=== PATIENT | female | born 1990 | race Caucasian/White ===

== ENCOUNTER 2019-10-13 17:50 | Inpatient (IN) ==
[2019-10-13] MEDS ORDERED: ONDANSETRON 4 MG/2 ML VIAL IV PRN (18:21)
[2019-10-13] MEDS ORDERED: BUTORPHANOL 1 MG/ML VIAL IV PRN (18:21)
[2019-10-13] MEDS ORDERED: BUTORPHANOL 2 MG/ML VIAL ONE (18:23)
[2019-10-13] MEDS ORDERED: ONDANSETRON 4 MG/2 ML VIAL ONE (18:23)
[2019-10-13] MEDS ORDERED: BUTORPHANOL 2 MG/ML VIAL IV SCH (18:30)
[2019-10-13] MEDS: LACTATED RINGERS 1,000 ML IV SCH ×2 (18:30→23:31)
[2019-10-13] MEDS: BUTORPHANOL 2 MG/ML VIAL IV SCH (21:21)
[2019-10-14] MEDS: BUTORPHANOL 2 MG/ML VIAL IV SCH (00:37)
[2019-10-14] MEDS ORDERED: MEPERIDINE 50 MG/1 ML VIAL IV PRN (02:14)
[2019-10-14] MEDS ORDERED: ONDANSETRON 4 MG/2 ML VIAL IV PRN ×2 (02:57→17:57)
[2019-10-14] MEDS ORDERED: LACTATED RINGERS 500 ML IV PRN (02:57)
[2019-10-14] MEDS ORDERED: PROMETHAZINE 25 MG/1 ML VIAL IM PRN (03:01)
[2019-10-14] MEDS ORDERED: LACTATED RINGERS 250 ML IV PRN (03:01)
[2019-10-14] MEDS ORDERED: diphenhydrAMINE 50 MG/1 ML VIAL IV PRN (03:01)
[2019-10-14] MEDS ORDERED: NALOXONE 0.4 MG/ML VIAL IV PRN (03:01)
[2019-10-14] MEDS ORDERED: ePHEDrine 50 MG/ML AMP IV PRN (03:01)
[2019-10-14] MEDS ORDERED: CITRIC ACID/SODIUM CITRATE 30 ML UDCUP PO ONE (03:01)
[2019-10-14 03:21] LABS: Basophils # 0.1 10*3/uL (0.0-0.2); Basophils % 0.4 % (0.0-0.8); Eosinophils # 0.1 10*3/uL (0.0-0.87); Eosinophils % 0.4 % (0.00-10.9); Hematocrit 29.9 VOL% (35.7-47.0); Hemoglobin 9.6 GM/DL (12.0-16.0); Immature Granulocytes % 0.8 %; Immature Granulocytes Absolute 0.09 #; Lymphocytes # 1.7 10*3/uL (1.4-4.0); Lymphocytes % 15.1 % (21.3-54.2); Mean Corpuscular HGB Conc 32.1 GM/DL (32-36); Mean Corpuscular Volume 91.4 FL (87-102); Mean Platelet Volume 10.1 FL (9.6-12.0); Monocytes % 5.6 % (1.7-12.7); Neutrophils % 77.7 % (38.7-73.9); Platelet Count 197 T/CUMM (130-400); Red Blood Count 3.27 MC/CUMM (3.8-5.5); Red Cell Distribution Width 13.4 % (9.3-17.3); White Blood Count 11.5 T/CUMM (4-12)
[2019-10-14] MEDS ORDERED: FAMOTIDINE 20 MG/2 ML VIAL IV ONE (03:29)
[2019-10-14] MEDS ORDERED: AMPICILLIN INJ 2,000 MG in SODIUM CHLORIDE 0.9% 100 ML IV ONE (03:30)
[2019-10-14] MEDS ORDERED: LACTATED RINGERS 1,000 ML IV SCH (03:30)
[2019-10-14] MEDS ORDERED: fentaNYL 2 MCG/ROPIV 0.2% EPID 100 ML EPIDURAL SCH (03:30)
[2019-10-14] MEDS ORDERED: RANITIDINE 150 MG TABLET PO ONE (03:30)
[2019-10-14 03:40] LABS: Alanine Aminotransferase 14 U/L (13-56); Albumin 2.7 G/DL (3.4-5.0); Alkaline Phosphatase 146 U/L (45-117); Aspartate Amino Transferase 18 U/L (0-37); Bilirubin,Total < 0.39 MG/DL (0.2-1.0); Blood Urea Nitrogen 8 MG/DL (7-18); Calcium 8.4 MG/DL (8.5-10.1); Estimated Glom Filtration Rate 128 ML/MIN; Glucose 84 MG/DL (74-106); Osmolality,Calculated 269.8 MOS/KG (273-304); Total Protein 6.2 G/DL (6.4-8.3)
[2019-10-14] MEDS ORDERED: AMPICILLIN 2,000 MG VIAL ONE (03:44)
[2019-10-14] MEDS ORDERED: SODIUM CHLORIDE 0.9% 100 ML IV ONE (03:44)
[2019-10-14] MEDS: LACTATED RINGERS 1,000 ML IV SCH ×3 (05:42→22:21)
[2019-10-14 06:38] LABS: Apearance,Urine CLEAR (Clear); Bacteria,Urine Occasional /HPF (Few); Bilirubin,Urine Negative (Negative); Blood, Urine Negative (Negative); Glucose,Urine (UA) Negative (Negative); Ketones,Urine 20 mg/dL (Negative); Mucus,Urine Occasional /LPF (Occasional); Nitrite,Urine Negative (Negative); Protein,Urine Negative; RBC,Urine <1 /HPF (0-4); Urine Color Yellow (Yellow); Urine Specific Gravity 1.015 (1.001-1.035); Urine Urobilinogen < 2.0 EU/DL (0.2-1.0); WBC,Urine <1 /HPF (0-6)
[2019-10-14] MEDS ORDERED: OXYTOCIN/LR 20 UNIT/1,000 ML BAG IV SCH (07:00)
[2019-10-14] MEDS: AMPICILLIN INJ 1,000 MG in SODIUM CHLORIDE 0.9% 100 ML IV SCH ×2 (07:19→12:33)
[2019-10-14] MEDS ORDERED: ROPIVACAINE 0.5% 30 ML VIAL ONE ×2 (11:05→14:01)
[2019-10-14] MEDS ORDERED: ceFAZolin 2,000 MG in PREMIX 1 EACH IV ONE (16:22)
[2019-10-14] MEDS ORDERED: LIDOCAINE MPF 2% /EPI 20 ML VIAL ONE ×2 (16:45→18:11)
[2019-10-14 17:39] LABS: Cord Arterial Blood HCO3 18.6 MMOL/L
[2019-10-14] MEDS ORDERED: RHO(D) IMMUNE GLOBULIN 300 MCG SYRINGE IM ONE (17:57)
[2019-10-14] MEDS ORDERED: OXYTOCIN/LR 20 UNIT/1,000 ML BAG IV ONE (17:57)
[2019-10-14] MEDS ORDERED: WITCH HAZEL PADS 100/JAR TOP PRN (17:57)
[2019-10-14] MEDS ORDERED: BISACODYL 10 MG SUPP RECTAL PRN (17:57)
[2019-10-14] MEDS ORDERED: HYDROCORTISONE 2.5% RECTAL CREAM 30 GM TUBE TOP PRN (17:57)
[2019-10-14] MEDS ORDERED: oxyCODONE/ACETAMINOPHEN 5-325 MG TABLET PO PRN (17:57)
[2019-10-14] MEDS ORDERED: BENZOCAINE 20%/MENTHOL 0.5% SPRAY 56 GM CAN TOP PRN (17:57)
[2019-10-14] MEDS ORDERED: MEASLES/MUMPS/RUBELLA VACCINE 0.5 ML VIAL SUBCUT ONE (17:57)
[2019-10-14] MEDS ORDERED: LANOLIN 50% CREAM 0.3 OZ TUBE TOP PRN (17:57)
[2019-10-14] MEDS ORDERED: ACETAMINOPHEN 325 MG TABLET PO PRN (17:57)
[2019-10-14] MEDS ORDERED: DIPH/TET/ACEL PERT BOOSTER VACCINE 0.5 ML VIAL IM ONE (17:57)
[2019-10-14] MEDS ORDERED: MORPHINE 10 MG/10 ML VIAL ONE (18:09)
[2019-10-14] MEDS ORDERED: PHENYLEPHRINE 1 MG/10 ML SYRINGE IV ONE (18:10)
[2019-10-14] MEDS ORDERED: MIDAZOLAM 2 MG/2 ML VIAL ONE (18:11)
[2019-10-14] MEDS ORDERED: fentaNYL 100 MCG/2 ML VIAL ONE (18:11)
[2019-10-14] MEDS ORDERED: propofoL 200 MG/20 ML VIAL IV ONE (18:12)
[2019-10-14] MEDS ORDERED: SODIUM BICARBONATE 10 MEQ/10 ML SYRINGE IV ONE (18:27)
[2019-10-14] MEDS: DOCUSATE SODIUM 100 MG CAPSULE PO SCH (21:40)
[2019-10-15] MEDS: ceFAZolin 1,000 MG in SYRINGE 1 EACH IV SCH ×2 (00:20→07:59)
[2019-10-15] MEDS: hydrOXYzine HCL 25 MG/1 ML VIAL IM PRN ×2 (00:45→09:38)
[2019-10-15] MEDS: IBUPROFEN 800 MG TABLET PO PRN ×4 (00:53→21:20)
[2019-10-15 05:28] LABS: Basophils % 0.3 % (0.0-0.8); Eosinophils % 0.3 % (0.00-10.9); Hematocrit 22.2 VOL% (35.7-47.0); Hemoglobin 7.1 GM/DL (12.0-16.0); Immature Granulocytes % 0.5 %; Immature Granulocytes Absolute 0.06 #; Lymphocytes # 1.9 10*3/uL (1.4-4.0); Mean Corpuscular Volume 91.7 FL (87-102); Mean Platelet Volume 10.2 FL (9.6-12.0); Monocytes % 5.1 % (1.7-12.7); Neutrophils % 76.8 % (38.7-73.9); Platelet Count 156 T/CUMM (130-400); Red Blood Count 2.42 MC/CUMM (3.8-5.5); Red Cell Distribution Width 13.8 % (9.3-17.3)
[2019-10-15] MEDS: SIMETHICONE CHEW 80 MG TABLET PO PRN ×2 (07:59→21:02)
[2019-10-15] MEDS: DOCUSATE SODIUM 100 MG CAPSULE PO SCH ×2 (07:59→21:02)
[2019-10-15] MEDS: MAGNESIUM HYDROXIDE SUSP 30 ML UDCUP PO PRN ×2 (08:00→21:02)
[2019-10-15] MEDS: oxyCODONE/ACETAMINOPHEN 5-325 MG TABLET PO PRN ×3 (11:17→21:20)
[2019-10-15] MEDS: FERROUS SULFATE 325 MG TABLET PO SCH (21:02)
[2019-10-16] MEDS: IBUPROFEN 800 MG TABLET PO PRN (06:22)
[2019-10-16] MEDS: oxyCODONE/ACETAMINOPHEN 5-325 MG TABLET PO PRN (06:22)
[2019-10-16 07:29] VITALS: BP 103/59
[2019-10-16] MEDS: FERROUS SULFATE 325 MG TABLET PO SCH (09:05)
[2019-10-16] MEDS: DOCUSATE SODIUM 100 MG CAPSULE PO SCH (09:05)
[2019-10-16] MEDS: SIMETHICONE CHEW 80 MG TABLET PO PRN (09:05)
[2019-10-16] MEDS: MAGNESIUM HYDROXIDE SUSP 30 ML UDCUP PO PRN (09:05)
== END 2019-10-16 13:05 | disposition home or self-care (01) | DRG 788 ==
LOC: N.LDOUT 17:50 → N.LD 17:51 → N.OB 10-14 20:55
PROVIDERS: ADMIT Specialist; ATTEND Specialist
PROC: LDCSECT (ICD-10-PCS; 2019-10-14 17:00)

== ENCOUNTER 2021-04-13 05:42 | Inpatient (IN) ==
[2021-04-13] MEDS: LACTATED RINGERS 1,000 ML IV SCH ×2 (06:10→18:30)
[2021-04-13 06:42] LABS: Basophils % 0.4 % (0.0-0.8); Eosinophils % 0.5 % (0.00-10.9); Hematocrit 33.8 VOL% (35.7-47.0); Hemoglobin 11.3 GM/DL (12.0-16.0); Immature Granulocytes % 0.8 %; Immature Granulocytes Absolute 0.06 #; Lymphocytes # 2.4 10*3/uL (1.4-4.0); Mean Corpuscular HGB Conc 33.4 GM/DL (32-36); Mean Corpuscular Volume 93.9 FL (87-102); Mean Platelet Volume 9.6 FL (9.6-12.0); Monocytes % 6.6 % (1.7-12.7); Neutrophils % 59.7 % (38.7-73.9); Platelet Count 204 T/CUMM (130-400); Red Cell Distribution Width 13.8 % (9.3-17.3); White Blood Count 7.4 T/CUMM (4-12)
[2021-04-13 07:01] LABS: Alanine Aminotransferase 17 U/L (13-56); Albumin 2.8 G/DL (3.4-5.0); Alkaline Phosphatase 187 U/L (45-117); Aspartate Amino Transferase 17 U/L (0-37); Bilirubin,Total < 0.39 MG/DL (0.20-1.00); Blood Urea Nitrogen 5 MG/DL (7-18); Calcium 8.8 MG/DL (8.5-10.1); Carbon Dioxide 21 MMOL/L (21-32); Estimated Glom Filtration Rate 143 ML/MIN; Glucose 81 MG/DL (74-106); Hypochromasia 1+; Lymphocytes 36 % (20-55); Microcytosis 1+; Osmolality,Calculated 268.8 MOS/KG (273-304); Platelet Estimate Adequate; Potassium 3.7 MMOL/L (3.5-5.1); Segmented Neutrophils 62 % (50-85); Sodium 137 MMOL/L (136-145); Total Cells Counted 100; Total Protein 6.8 G/DL (6.4-8.2)
[2021-04-13] MEDS ORDERED: ceFAZolin 2,000 MG/50 ML DUPLEX IV ONE (08:00)
[2021-04-13] MEDS ORDERED: OXYTOCIN/LR 20 UNIT/1,000 ML BAG IV ONE ×2 (08:00→10:39)
[2021-04-13] MEDS ORDERED: CITRIC ACID/SODIUM CITRATE 30 ML UDCUP PO ONE (08:00)
[2021-04-13] MEDS ORDERED: FAMOTIDINE 20 MG/2 ML VIAL IV ONE (08:00)
[2021-04-13] MEDS ORDERED: miSOPROStoL 200 MCG TABLET ONE (08:01)
[2021-04-13] MEDS ORDERED: CARBOPROST TROMETHAMINE 250 MCG/ML AMP IM ONE (08:02)
[2021-04-13] MEDS ORDERED: TRANEXAMIC ACID 1,000 MG/10 ML VIAL ONE (08:02)
[2021-04-13] MEDS ORDERED: METHYLERGONOVINE 0.2 MG/1 ML AMP ONE (08:02)
[2021-04-13] MEDS ORDERED: SODIUM CHLORIDE 0.9% 0 ML IV ONE (08:03)
[2021-04-13] MEDS ORDERED: METOCLOPRAMIDE 10 MG/2 ML VIAL ONE (08:24)
[2021-04-13] MEDS ORDERED: ONDANSETRON 4 MG/2 ML VIAL ONE (08:24)
[2021-04-13 08:54] LABS: Bacteria,Urine Occasional /HPF (Few); Bilirubin,Urine Negative (Negative); Blood, Urine Negative (Negative); Glucose,Urine (UA) Negative (Negative); Ketones,Urine Negative (Negative); Mucus,Urine Occasional /LPF (Occasional); Nitrite,Urine Negative (Negative); Protein,Urine Negative; RBC,Urine 1 /HPF (0-4); Squamous Epithelial Cell,Urine Occasional /HPF (0-10); Urine Appearance CLEAR (Clear); Urine Color Yellow (Yellow); Urine Specific Gravity 1.014 (1.001-1.035); Urine Urobilinogen < 2.0 EU/DL (0.2-1.0)
[2021-04-13] MEDS ORDERED: BUPIVACAINE SPINAL 0.75% 2 ML AMP SPINAL ONE (09:21)
[2021-04-13] MEDS ORDERED: propofoL 200 MG/20 ML VIAL IV ONE (09:47)
[2021-04-13 10:08] LABS: Cord Arterial Blood HCO3 27.5 MMOL/L
[2021-04-13 10:10] LABS: Cord Venous Blood HCO3 23.3 MMOL/L; Cord Venous Blood PO2 36.9
[2021-04-13] MEDS ORDERED: PHENYLEPHRINE 1 MG/10 ML SYRINGE IV ONE (10:11)
[2021-04-13 10:12] LABS: Bacteria,Urine Occasional /HPF (Few); Bilirubin,Urine Negative (Negative); Blood, Urine Negative (Negative); Glucose,Urine (UA) Negative (Negative); Ketones,Urine Negative (Negative); Mucus,Urine Occasional /LPF (Occasional); Nitrite,Urine Negative (Negative); Protein,Urine Negative; RBC,Urine 1 /HPF (0-4); Urine Appearance CLEAR (Clear); Urine Color Yellow (Yellow); Urine Specific Gravity 1.014 (1.001-1.035); Urine Urobilinogen < 2.0 EU/DL (0.2-1.0)
[2021-04-13] MEDS ORDERED: ACETAMINOPHEN INJ 1,000 MG/100 ML VIAL IV ONE (10:19)
[2021-04-13] MEDS ORDERED: HYDROCORTISONE 2.5% RECTAL CREAM 30 GM TUBE TOP PRN (10:39)
[2021-04-13] MEDS ORDERED: WITCH HAZEL PADS 100/JAR TOP PRN (10:39)
[2021-04-13] MEDS ORDERED: DIPH/TET/ACEL PERT BOOSTER VACCINE 0.5 ML VIAL IM ONE (10:39)
[2021-04-13] MEDS ORDERED: LANOLIN 50% CREAM 0.3 OZ TUBE TOP PRN (10:39)
[2021-04-13] MEDS ORDERED: oxyCODONE/ACETAMINOPHEN 5-325 MG TABLET PO PRN (10:39)
[2021-04-13] MEDS ORDERED: BENZOCAINE 20%/MENTHOL 0.5% SPRAY 56 GM CAN TOP PRN (10:39)
[2021-04-13] MEDS ORDERED: ONDANSETRON 4 MG/2 ML VIAL IV PRN (10:39)
[2021-04-13] MEDS ORDERED: MEASLES/MUMPS/RUBELLA VACCINE 0.5 ML VIAL SUBCUT ONE (10:39)
[2021-04-13] MEDS ORDERED: ACETAMINOPHEN 325 MG TABLET PO PRN (10:39)
[2021-04-13] MEDS ORDERED: BISACODYL 10 MG SUPP RECTAL PRN (10:39)
[2021-04-13] MEDS ORDERED: RHO(D) IMMUNE GLOBULIN 300 MCG SYRINGE IM ONE (10:39)
[2021-04-13] MEDS ORDERED: LACTATED RINGERS 2,000 ML IV ONE (10:39)
[2021-04-13] MEDS: KETOROLAC 30 MG/1 ML VIAL IV SCH ×2 (13:20→19:16)
[2021-04-13] MEDS ORDERED: diphenhydrAMINE 50 MG/1 ML VIAL IV PRN (15:10)
[2021-04-13] MEDS: ACETAMINOPHEN 500 MG TABLET PO SCH ×2 (16:28→21:38)
[2021-04-13] MEDS: DOCUSATE SODIUM 100 MG CAPSULE PO SCH (20:08)
[2021-04-14] MEDS: KETOROLAC 30 MG/1 ML VIAL IV SCH ×3 (02:53→09:20)
[2021-04-14] MEDS: ACETAMINOPHEN 500 MG TABLET PO SCH ×2 (04:05→09:20)
[2021-04-14 06:03] LABS: Basophils % 0.2 % (0.0-0.8); Eosinophils # 0.1 10*3/uL (0.0-0.87); Eosinophils % 1.1 % (0.00-10.9); Hematocrit 33.2 VOL% (35.7-47.0); Hemoglobin 10.7 GM/DL (12.0-16.0); Immature Granulocytes % 0.6 %; Immature Granulocytes Absolute 0.05 #; Lymphocytes # 1.9 10*3/uL (1.4-4.0); Lymphocytes % 24.1 % (21.3-54.2); Mean Corpuscular HGB Conc 32.2 GM/DL (32-36); Mean Corpuscular Volume 96.8 FL (87-102); Mean Platelet Volume 9.9 FL (9.6-12.0); Monocytes % 6.2 % (1.7-12.7); Neutrophils % 67.8 % (38.7-73.9); Platelet Count 172 T/CUMM (130-400); Red Blood Count 3.43 MC/CUMM (3.8-5.5); White Blood Count 8.1 T/CUMM (4-12)
[2021-04-14] MEDS: DOCUSATE SODIUM 100 MG CAPSULE PO SCH ×2 (09:20→20:24)
[2021-04-14] MEDS: IBUPROFEN 800 MG TABLET PO PRN ×3 (09:20→20:25)
[2021-04-14] MEDS: BUPROPION HCL 150 MG PO SCH (11:05)
[2021-04-14] MEDS: [UNRECOGNIZED DRUG - REMARK] PO SCH (11:07)
[2021-04-14] MEDS: oxyCODONE/ACETAMINOPHEN 5-325 MG TABLET PO PRN ×2 (14:51→20:25)
[2021-04-14] MEDS ORDERED: SIMETHICONE CHEW 80 MG TABLET PO PRN (22:39)
[2021-04-14] MEDS: MAGNESIUM HYDROXIDE SUSP 30 ML UDCUP PO PRN (22:49)
[2021-04-15] MEDS: oxyCODONE/ACETAMINOPHEN 5-325 MG TABLET PO PRN (05:25)
[2021-04-15] MEDS: IBUPROFEN 800 MG TABLET PO PRN (05:25)
[2021-04-15 07:58] VITALS: BP 107/53
[2021-04-15] MEDS: DOCUSATE SODIUM 100 MG CAPSULE PO SCH (09:50)
[2021-04-15] MEDS: MAGNESIUM HYDROXIDE SUSP 30 ML UDCUP PO PRN (09:58)
[2021-04-15] MEDS: [UNRECOGNIZED DRUG - REMARK] PO SCH (12:11)
[2021-04-15] MEDS: BUPROPION HCL 150 MG PO SCH (12:11)
== END 2021-04-15 12:27 | disposition home or self-care (01) | DRG 788 ==
LOC: N.LD 05:42 → N.OB 13:55
PROVIDERS: ADMIT Specialist; ATTEND Specialist
PROC: LDCSECT (ICD-10-PCS; 2021-04-13 09:25)